=== PATIENT | male | born 1985 | race Caucasian/White ===

== ENCOUNTER 2016-12-04 20:50 | Emergency (ER) | payer BC ==
[~2016-12-04] VITALS: Ht 177.8 cm; Wt 124.7 kg
--- NOTE | ~2016-12-04 | EKG ---
[address] [place] [address] ELECTROCARDIOGRAM REPORT Name: JANN HU Room #: [facility]P [facility]EREmiliaEmilia#: [id number] Admission: 12/04/16 Attend Phys: Discharge: 12/04/16 Date of : 81 Report #: [id number] THIS REPORT FOR: //name// [facility] ED Test Date: 2016-12-04 Test Time: 21:03:21 Pat Name: JANN HU Department: Room: Gender: Apartment Maintenance: Cora FERNANDO : 1985 Requested By: Emmett Ravi Order Number: [id number] MD: Roberto Vidal Measurements Intervals [place] Rate: 96 P: 28 RI: 173 QRS: -36 QRSD: 102 T: 40 QT: 359 QTc: 454 Interpretive Statements Sinus rhythm Left ventricular hypertrophy No previous ECG available for comparison Electronically Signed On 12-05-2016 8:50:46 CDT by Roberto Vidal [email or web address] <ELECTRONICALLY SIGNED> By: Roberto Vidal MD, [facility] 12/05/16 0850 [id number] Roberto Vidal MD, FACC /EPI
[2016-12-04 21:29] LABS: ABSOLUTE NEUTROPHILS 6.5 thou/uL (1.4-8.2); BASOPHILS 0.9 % (0.0-2.0); EOSINOPHILS 1.4 % (0.0-3.0); HEMATOCRIT 43.3 % (42.0-52.0); LYMPHOCYTES 29.2 % (24.0-44.0); MCH 27.1 pg (26.0-34.0); MCHC 34.7 g/dL (28.0-37.0); MCV 77.9 fL (80.0-100.0); MONOCYTES 6.1 % (1.0-8.0); PLATELET COUNT 208 thou/uL (150-400); POLYS 62.4 % (36.0-66.0); RBC 5.56 mil/uL (4.50-6.00); RDW 14.1 % (10.5-14.5); WBC 10.4 thou/uL (4.0-11.0)
[2016-12-04 21:32] LABS: MANUAL DIFF NO
[2016-12-04 21:39] LABS: POTASSIUM 3.9 mmol/L (3.5-5.1)
[2016-12-04 21:43] LABS: ALBUMIN 3.7 g/dL (3.4-5.0); TOTAL BILIRUBIN 0.8 mg/dL (<0.1-1.0); TOTAL PROTEIN 7.6 g/dL (6.4-8.2)
[2016-12-04 21:50] LABS: URINE BILIRUBIN NEGATIVE (Negative); URINE BLOOD TRACE (Negative); URINE COLOR YELLOW; URINE GLUCOSE-RANDOM* 3+ (Negative); URINE KETONES NEGATIVE (Negative); URINE LEUKOCYTES-REFLEX NEGATIVE (Negative); URINE PROTEIN (DIPSTICK) NEGATIVE (Negative); URINE SPECIFIC GRAVITY <= 1.005 (1.003-1.035); URINE UROBILINOGEN 0.2 E.U./dl (0.2-1.0)
[2016-12-04] MEDS ORDERED: METFORMIN HCL500 MG PO (21:59)
[2016-12-04] MEDS ORDERED: ZESTRIL20 MG PO (21:59)
[2016-12-04 22:57] VITALS: BP 195/136
== END 2016-12-04 22:58 | disposition home or self-care (01) ==
LOC: ER 20:50
PROVIDERS: Emergency Medicine
DX: S06.0X0A Concussion without loss of consciousness, initial encounter (principal); I10 Essential (primary) hypertension; E11.9 Type 2 diabetes mellitus without complications; F10.99 Alcohol use, unspecified with unspecified alcohol-induced disorder; W22.8XXA Striking against or struck by other objects, initial encounter; Y93.89 Activity, other specified; Y92.89 Other specified places as the place of occurrence of the external cause; Y99.8 Other external cause status